=== PATIENT | female | born 1965 | race Caucasian/White ===

== ENCOUNTER → 2019-08-24 12:18 | Outpatient (BNVA) | payer MEDICARE, MEDICAID, SELFPAY | PROVIDERS: Family Provider Nurse Practitioner Family; Visit Provider Nurse Practitioner Family | DX: R19.7 Diarrhea, unspecified (principal); K63.5 Polyp of colon; H10.32 Unspecified acute conjunctivitis, left eye; H10.9 Unspecified conjunctivitis; K29.00 Acute gastritis without bleeding | CPT/HCPCS: 82270 ==

== ENCOUNTER → 2019-10-02 11:35 | Outpatient (BNVA) | payer MEDICARE, MEDICAID, SELFPAY | PROVIDERS: Family Provider Nurse Practitioner Family; PCP Nurse Practitioner Family; Visit Provider Nurse Practitioner Family | DX: E11.40 Type 2 diabetes mellitus with diabetic neuropathy, unspecified (principal); I10 Essential (primary) hypertension; E78.2 Mixed hyperlipidemia; E03.9 Hypothyroidism, unspecified; M15.0 Primary generalized (osteo)arthritis; H66.90 Otitis media, unspecified, unspecified ear; J40 Bronchitis, not specified as acute or chronic; B37.3 Candidiasis of vulva and vagina; J30.2 Other seasonal allergic rhinitis | CPT/HCPCS: 80053; 80061; 81001; 83036; 83880; 84443; 85025 ==

== ENCOUNTER → 2019-11-20 10:19 | Outpatient (BNVA) | payer MEDICARE, MEDICAID, SELFPAY | PROVIDERS: Family Provider Nurse Practitioner Family; PCP Nurse Practitioner Family; Referring Provider Nurse Practitioner Family; Visit Provider Orthopaedic Surgery | DX: M25.569 Pain in unspecified knee (principal); M17.0 Bilateral primary osteoarthritis of knee | CPT/HCPCS: 73560; 73565 ==

== ENCOUNTER → 2020-02-15 09:06 | Outpatient (BNVA) | payer OTHER, MEDICAID, SELFPAY | PROVIDERS: Family Provider Nurse Practitioner Family; PCP Nurse Practitioner Family; Visit Provider Nurse Practitioner Family | DX: E11.40 Type 2 diabetes mellitus with diabetic neuropathy, unspecified (principal); E78.2 Mixed hyperlipidemia; E03.9 Hypothyroidism, unspecified; I10 Essential (primary) hypertension; K21.9 Gastro-esophageal reflux disease without esophagitis; B37.3 Candidiasis of vulva and vagina; E55.9 Vitamin D deficiency, unspecified | CPT/HCPCS: 80053; 80061; 81001; 82306; 83036; 84443; 85025 ==

== ENCOUNTER → 2020-03-07 16:55 | Outpatient (BNVA) | payer OTHER, MEDICAID, SELFPAY | PROVIDERS: Family Provider Nurse Practitioner Family; PCP Nurse Practitioner Family; Visit Provider Nurse Practitioner Family | DX: R53.83 Other fatigue (principal); E11.40 Type 2 diabetes mellitus with diabetic neuropathy, unspecified; K57.92 Diverticulitis of intestine, part unspecified, without perforation or abscess without bleeding; B37.3 Candidiasis of vulva and vagina; L84 Corns and callosities; E66.01 Morbid (severe) obesity due to excess calories; Z68.43 Body mass index [BMI] 50.0-59.9, adult; M54.5 Low back pain | CPT/HCPCS: 82607; 82746 ==

== ENCOUNTER → 2020-03-08 11:41 | Outpatient (BNVA) | payer OTHER, MEDICAID, SELFPAY | PROVIDERS: Family Provider Nurse Practitioner Family; PCP Nurse Practitioner Family; Visit Provider Nurse Practitioner Family | DX: R53.83 Other fatigue (principal); E11.40 Type 2 diabetes mellitus with diabetic neuropathy, unspecified; K57.92 Diverticulitis of intestine, part unspecified, without perforation or abscess without bleeding; B37.3 Candidiasis of vulva and vagina; L84 Corns and callosities; E66.01 Morbid (severe) obesity due to excess calories; Z68.43 Body mass index [BMI] 50.0-59.9, adult; M54.5 Low back pain | CPT/HCPCS: 82746 ==

== ENCOUNTER 2020-03-20 13:38 | Emergency (ER) | payer OTHER, MEDICAID, SELFPAY ==
[2020-03-20 13:42] VITALS: BP 163/87; PULSE 79; RESP 17; TEMP 36.6; O2SAT 98; BMI 46.8
[2020-03-20 13:49] VITALS: BMI 46.8
[2020-03-20 14:25] LABS: Add Urine Microscopic? NO
[2020-03-20 14:31] LABS: Specific Gravity, Urine 1.005 (1.005-1.030); Urine Appearance Clear (CLEAR); Urine Color Yellow (Yellow); pH Urine 7 (5-7)
[2020-03-20 14:32] LABS: Bilirubin Urine Neg (NEGATIVE); Blood Urine Neg (Negative); Glucose Urine UA Norm (Normal); Ketones Urine Negative (Negative); Leukocyte Esterase Urine Negative (Negative); Nitrate Urine Negative (Negative); Protein Urine Neg (Negative); Urobilinogen Urine Norm (Negative)
--- NOTE | 2020-03-20 15:48 | CTR_ITS ---
PROCEDURE INFORMATION: Exam: CT Abdomen And Pelvis With Contrast Exam date and time: 03/20/2020 4:22 PM Age: 54 years old Clinical indication: Abdominal pain; Left; Prior surgery; Surgery date: 6+ months; Surgery type: Hyst, gb; Patient HX: C/O L flank pain x 4 days TECHNIQUE: Imaging protocol: Computed tomography of the abdomen and pelvis with intravenous contrast. Radiation optimization: All CT scans at this facility use at least one of these dose optimization techniques: automated exposure control; mA and/or kV adjustment per patient size (includes targeted exams where dose is matched to clinical indication); or iterative reconstruction. Contrast material: VISI 320; Contrast volume: 95 ml; Contrast route: INTRAVENOUS (IV); COMPARISON: CT abdomen pelvis w con* [id number] 05/27/2019 12:01 PM RADIATION DOSE METRICS: Total DLP (mGy-cm): 1928.9 FINDINGS: Lungs: Calcified granuloma in the left lung base. Liver: Diffuse fatty infiltration of the liver. Gallbladder and bile ducts: Cholecystectomy. The bile ducts are normal. Pancreas: Normal. No ductal dilation. Spleen: Calcified granulomas in a normal sized spleen. Adrenals: Normal. No mass. Kidneys and ureters: Normal. No hydronephrosis. Stomach and bowel: The transverse and distal sigmoid colon are decompressed, without definite wall thickening. The stomach and small bowel are unremarkable. Appendix: A small appendix is visualized and is normal. Intraperitoneal space: Unremarkable. No free air. No significant fluid collection. Vasculature: Unremarkable. No abdominal aortic aneurysm. Lymph nodes: Unremarkable. No enlarged lymph nodes. Bladder: Unremarkable as visualized. Reproductive: The uterus and ovaries are absent. Bones/joints: Unremarkable. No acute fracture. Soft tissues: Fat containing umbilical hernia. CT/CT abdomen pelvis w con* [id number] IMPRESSION: 1. No acute abnormality identified in the abdomen or pelvis. Radiation Dose CTDIVOL = (mGy): DLP = 1928.9 (mGy-cm)
[2020-03-20 15:51] LABS: Basophils % 0.5 %; Eosinophils # 0.1 10^3/uL (0.0-0.8); Eosinophils % 1.2 %; Hematocrit 45.6 % (37.0-47.0); Hemoglobin 14.5 g/dL (11.5-15.3); Lymphocytes # 1.9 10^3/uL (0.8-4.8); Lymphocytes % 22.3 %; Mean Corpuscular HGB Conc 31.8 g/dL (30.0-36.0); Mean Corpuscular Hemoglobin 28.8 pg (28.0-34.0); Mean Corpuscular Volume 90.5 fL (81-99); Mean Platelet Volume 10.2 fL (7.4-10.4); Monocytes # 0.5 10^3/uL (0.2-0.9); Neutrophils # 5.79 10^3/uL (1.8-7.7); Neutrophils % 69.9 %; Nucleated Red Blood Cells % 0 %; Platelet Count 262 10^3/cmm (130-400); Red Blood Count 5.04 10^6/uL (4.1-5.3); Red Cell Distribution Width 12.3 % (12.1-15.1); White Blood Count 8.3 10^3/uL (4.0-10.0)
--- NOTE | 2020-03-20 16:05 | W.ED.GENADLT ---
HPI - General Adult General: Chief complaint: General Medical Stated complaint: ab pain, left side Time Seen by Provider: 03/20/20 15:39 Source: patient Mode of arrival: ambulatory Limitations: no limitations History of Present Illness: HPI narrative: Ms. Mo is a nice 54-year-old female who comes in with multiple complaints. Her greatest complaint is that of left-sided abdominal pain. She states 3 days ago she was walking when she felt pain come on in her left back and left upper quadrant. She states she always felt like there was a pop . The pain is been steady since that time and never resolves. She feels like this is her diverticulitis that she is had in the past. She denies any diarrhea, blood in her stools, nausea or vomiting or fever. Patient states that she just cannot get the pain to go away and that is her concern. She does not relate trying anything at home for this. Her other complaint is that of yeast infection under her breast. She states is been present for 1 week. She says it itches and uncomfortable. She had leftover nystatin that she is been trying at home for this as well but does not feel as though it is improving. Associated symptoms: Reports rash; Deny chest pain, dyspnea, headache(s), nausea, palpitations, syncope or vomiting Review of Systems Const: Denies: fever(s) Eyes: Denies: change in vision or blurry vision ENMT: Denies: throat pain or hoarseness Card: Denies: chest pain, palpitations, syncope, pre-syncope or dyspnea on exertion Resp: Denies: dyspnea, productive cough or non-productive cough GI: Reports: abdominal pain; Denies: nausea, vomiting or diarrhea : Reports: flank pain; Denies: dysuria, urinary frequency or urinary urgency Musc: Denies: neck pain, back pain or extremity pain Skin/Breast: Reports: rash; Denies: pruritus Neuro: Denies: headache(s), numbness in extremities, weakness in extremities or dizziness FOR[facility] ED PFSH: Medical History BMI 45.0-49.9, adult Callus of foot Diverticulitis Essential hypertension, benign Fatigue Fibromyalgia GERD (gastroesophageal reflux disease) H/O adenomatous polyp of colon Hypothyroid Mixed hyperlipidemia Obesity Oral herpes Osteoarthritis of knees, bilateral Primary osteoarthritis involving multiple joints Type 2 diabetes mellitus with diabetic neuropathy Vaginal yeast infection Surgical History H/O section H/O colonoscopy with polypectomy Last colonoscopy done 03/[address] Knight. Suggested repeat 2-3 years H/O: hysterectomy S/P cholecystectomy Family History Denies family history of Anesthesia complication Bleeding disorder Social History Smoking and tobacco status: never smoked Second hand smoke exposure: No Alcohol intake: never Desire information about alcohol rehabilitation?: No Counseling given: No Desire information about substance/drug rehabilitation?: No Counseling given: No Physical Exam Const: COMMON NORMALS: no acute distress, patient oriented x3, no limitations, healthy appearing and well nourished GENERAL APPEARANCE: cooperative, well kempt and well developed HENMT: COMMON NORMALS: normocephalic, atraumatic, external ears normal, EAC's normal and Normal external nose present HEAD & SCALP: normal to inspection, normocephalic and atraumatic FACE & SINUS: normal facial exam and face symmetric NOSE: Normal external nose present and Normal nares present EXTERNAL EAR: Yes external ears normal EXTERNAL AUDITORY CANAL: EAC's normal MOUTH: Normal oral and palatal mucosa present, lip normal and tongue normal Eye: COMMON NORMALS: Equal, round and reactive pupils present and conjunctivae normal GENERAL EYE: appearance normal, both eyes and all related structures ALIGNMENT: Yes alignment normal PERIORBITAL: periorbital findings normal EYELID: eyelids normal CONJUNCTIVA: Yes conjunctivae normal SCLERA: sclerae normal PUPIL: Yes Equal, round and reactive pupils present Neck/C-Spine: COMMON NORMALS: full ROM, no lymphadenopathy, supple, no meningeal signs and no JVD GENERAL: Yes normal visual inspection and Yes trachea midline Chest: COMMONS NORMALS: normal inspection of the chest and normal palpation of entire chest wall Resp: COMMON NORMALS: normal respiratory effort, No retractions, No use of accessory muscles and clear to auscultation bilaterally EFFORT & INSPECTION: Yes able to speak in complete sentences and Yes symmetric chest movement AUSCULTATION: clear to auscultation bilaterally, no crackles, no rales, no rhonchi and no wheezes Cardio: COMMON NORMALS: no JVD, regular rate, regular rhythm, S1 normal heart sound present and S2 normal heart sound present RATE: regular rate RHYTHM: regular rhythm HEART SOUNDS: S1 normal heart sound present, S2 normal heart sound present, no click, no gallops, no murmurs, no rubs and abnormal split S2 GI: COMMON NORMALS: Soft to palpation and No hepatosplenomegaly present PALPATION: Yes Soft to palpation, Yes Tenderness to palpation present (GI) Details: LUQ, No Guarding due to palpation present (GI), No Rigid due to palpation, Yes No hepatosplenomegaly present, No Hernia present, No Palpable mass present and No Pulsatile mass present : COMMON NORMALS: Yes no CVA tenderness BLADDER/KIDNEY EXAM: Yes no CVA tenderness EXTERNAL FEMALE EXAM: No Hernia present Back/Pelvis: COMMON NORMALS: no CVA tenderness, thoracic and lumbar spine normal to inspection, no thoracic nor lumbar tenderness and thoraco-lumbar ROM normal Extremity: COMMON NORMALS: normal to inspection, full ROM, capillary refill normal, no joint enlargement, no clubbing, cyanosis or edema and no calf tenderness Neuro: COMMON NORMALS: patient oriented x3, CN's II-XII intact bilaterally, moves all extremities, no focal motor deficits and no sensory deficits noted MENINGEAL SIGNS: Yes no meningeal signs SPEECH: speech normal Psych: COMMON NORMALS: mental status grossly normal, Normal thought process present, cooperative, normal affect, speech normal and activity/motor behavior normal APPEARANCE: Yes well kempt SPEECH: Yes normal speech THOUGHT PROCESS: Normal thought process present Skin: COMMON NORMALS: no rashes or lesions noted, turgor normal, no jaundice, no petechiae and no mottling GENERAL SKIN EXAM: no rashes or lesions noted and turgor normal Course Vital Signs: Vital signs: Vital Signs Temperature 97.8 F 03/20/20 13:42 Pulse Rate 78 03/20/20 18:26 Respiratory Rate 17 03/20/20 18:26 Blood Pressure 145/74 03/20/20 18:26 Pulse Oximetry 97 03/20/20 18:26 MDM - General Adult MDM Narrative: Medical decision making narrative: Patient is reassured to hear her CT is unremarkable. She is ready to go home at this time but does request something for yeast infection. It is slightly more so I put her on nystatin powder. Instructed her to keep this area clean and dry. Her exam was unremarkable see no sign of cardiac findings. There is no sign of urinary tract infection or pyelonephritis. This time according to her CAT scan I see no acute life-threatening problems. Patient agrees to return should her symptoms change or worsen. Lab Data: Attestation: I reviewed the patient's lab results. Labs: Lab Results 03/20/20 03/20/20 03/20/20 Range/Units 14:05 15:42 15:42 WBC 8.3 (4.0-10.0) 10^3/ uL RBC 5.04 (4.1-5.3) 10^6/u L Hgb 14.5 (11.5-15.3) g/dL Hct 45.6 (37.0-47.0) % MCV 90.5 (81-99) fL MCH 28.8 (28.0-34.0) pg MCHC 31.8 (30.0-36.0) g/dL RDW 12.3 (12.1-15.1) % Plt Count 262 (130-400) 10^3/c mm MPV 10.2 (7.4-10.4) fL Neut % (Auto) 69.9 % Lymph % (Auto) 22.3 % [place] % (Auto) 6.0 % Eos % (Auto) 1.2 % Baso % (Auto) 0.5 % Neut # (Auto) 5.79 (1.8-7.7) 10^3/u L Lymph # (Auto) 1.9 (0.8-4.8) 10^3/u L [place] # (Auto) 0.5 (0.2-0.9) 10^3/u L Eos # (Auto) 0.1 (0.0-0.8) 10^3/u L Baso # (Auto) 0.0 (0.0-0.1) 10^3/u L Nucleated RBC % (a uto) 0 % Nucleated RBCs # 0.0 /100WBC Sodium 138 (136-145) mmol/L Potassium 4.3 (3.5-5.1) mmol/L Chloride 103 (98-107) mmol/L Carbon Dioxide 29 (22-29) mmol/L Anion Gap 10.3 (5-19) BUN 12 (6-20) mg/dL Creatinine 1.1 H (0.5-0.9) mg/dL GFR Calculation 51.4 L (90-130) mL/min Glucose 117 H (65-115) mg/dL Calculated Osmolal ity 283 L (285-295) mOsm/k g Calcium 9.5 (8.5-10.5) mg/dL Total Bilirubin 0.4 (0.15-1.2) mg/dL AST 25 (0-32) U/L ALT 40 H (0-33) U/L Alkaline Phosphata se 111 H (35-105) IU/L Total Protein 7.3 (6.6-8.7) g/dL Albumin 4.0 (3.5-5.2) g/dL Globulin 3.3 (1.3-4.6) g/dL Lipase 52 (13-60) U/L HCG, Qual (Negative) Urine Color Yellow (Yellow) Urine Appearance Clear (CLEAR) Urine pH 7 (5-7) Ur Specific Gravit y 1.005 (1.005-1.030) Urine Protein Neg (Negative) Urine Glucose (UA) Norm (Normal) Urine Ketones Negative (Negative) Urine Blood Neg (Negative) Urine Nitrate Negative (Negative) Urine Bilirubin Neg (NEGATIVE) Urine Urobilinogen Norm (Negative) mg/dL Ur Leukocyte Shae ase Negative (Negative) 03/20/20 Range/Units 15:42 WBC (4.0-10.0) 10^3/ uL RBC (4.1-5.3) 10^6/u L Hgb (11.5-15.3) g/dL Hct (37.0-47.0) % MCV (81-99) fL MCH (28.0-34.0) pg MCHC (30.0-36.0) g/dL RDW (12.1-15.1) % Plt Count (130-400) 10^3/c mm MPV (7.4-10.4) fL Neut % (Auto) % Lymph % (Auto) % [place] % (Auto) % Eos % (Auto) % Baso % (Auto) % Neut # (Auto) (1.8-7.7) 10^3/u L Lymph # (Auto) (0.8-4.8) 10^3/u L [place] # (Auto) (0.2-0.9) 10^3/u L Eos # (Auto) (0.0-0.8) 10^3/u L Baso # (Auto) (0.0-0.1) 10^3/u L Nucleated RBC % (a uto) % Nucleated RBCs # /100WBC Sodium (136-145) mmol/L Potassium (3.5-5.1) mmol/L Chloride (98-107) mmol/L Carbon Dioxide (22-29) mmol/L Anion Gap (5-19) BUN (6-20) mg/dL Creatinine (0.5-0.9) mg/dL GFR Calculation (90-130) mL/min Glucose (65-115) mg/dL Calculated Osmolal ity (285-295) mOsm/k g Calcium (8.5-10.5) mg/dL Total Bilirubin (0.15-1.2) mg/dL AST (0-32) U/L ALT (0-33) U/L Alkaline Phosphata se (35-105) IU/L Total Protein (6.6-8.7) g/dL Albumin (3.5-5.2) g/dL Globulin (1.3-4.6) g/dL Lipase (13-60) U/L HCG, Qual Negative (Negative) Urine Color (Yellow) Urine Appearance (CLEAR) Urine pH (5-7) Ur Specific Gravit y (1.005-1.030) Urine Protein (Negative) Urine Glucose (UA) (Normal) Urine Ketones (Negative) Urine Blood (Negative) Urine Nitrate (Negative) Urine Bilirubin (NEGATIVE) Urine Urobilinogen (Negative) mg/dL Ur Leukocyte Shae ase (Negative) Imaging Data^: CT Abd/Pel: Radiologist's impression: [address] [place] [address] CT Scan Report Signed Patient: Yu Mo Unit #: [id number] : 1965 Age/Sex: 54 / F ADM Date: 03/20/20 Loc: ER Room/Bed: Attending Dr: Ordering Provider/Ordering MD: Renita Morrow DO Date of Service: 03/20/20 Procedure(s): CT abdomen pelvis w con* [id number] Accession Number(s): [id number] Report Number: [id number] PROCEDURE INFORMATION: Exam: CT Abdomen And Pelvis With Contrast Exam date and time: 03/20/2020 4:22 PM Age: 54 years old Clinical indication: Abdominal pain; Left; Prior surgery; Surgery date: 6+ months; Surgery type: Hyst, gb; Patient HX: C/O L flank pain x 4 days TECHNIQUE: Imaging protocol: Computed tomography of the abdomen and pelvis with intravenous contrast. Radiation optimization: All CT scans at this facility use at least one of these dose optimization techniques: automated exposure control; mA and/or kV adjustment per patient size (includes targeted exams where dose is matched to clinical indication); or iterative reconstruction. Contrast material: VISI 320; Contrast volume: 95 ml; Contrast route: INTRAVENOUS (IV); COMPARISON: CT abdomen pelvis w con* [id number] 05/27/2019 12:01 PM RADIATION DOSE METRICS: Total DLP (mGy-cm): 1928.9 FINDINGS: Lungs: Calcified granuloma in the left lung base. Liver: Diffuse fatty infiltration of the liver. Gallbladder and bile ducts: Cholecystectomy. The bile ducts are normal. Pancreas: Normal. No ductal dilation. Spleen: Calcified granulomas in a normal sized spleen. Adrenals: Normal. No mass. Kidneys and ureters: Normal. No hydronephrosis. Stomach and bowel: The transverse and distal sigmoid colon are decompressed, without definite wall thickening. The stomach and small bowel are unremarkable. Appendix: A small appendix is visualized and is normal. Intraperitoneal space: Unremarkable. No free air. No significant fluid collection. Vasculature: Unremarkable. No abdominal aortic aneurysm. Lymph nodes: Unremarkable. No enlarged lymph nodes. Bladder: Unremarkable as visualized. Reproductive: The uterus and ovaries are absent. Bones/joints: Unremarkable. No acute fracture. Soft tissues: Fat containing umbilical hernia. CT/CT abdomen pelvis w con* [id number] IMPRESSION: 1. No acute abnormality identified in the abdomen or pelvis. Radiation Dose CTDIVOL = (mGy): DLP = 1928.9 (mGy-cm) Dictated By: Anthony Deleon Signed By: Anthony Deleon Signed Date/Time: 03/20/201712 DD/ 10 Discharge Plan Discharge Patient Disposition: Home Clinical Impression: Candidal skin infection Abdominal pain Qualifiers: Abdominal location: left upper quadrant Qualified Code(s): R10.12 - Left upper quadrant pain Condition: Stable Prescriptions: New nystatin 100,000 unit/gram powder 1 applic TOPICAL QID Qty: 30 RF: 0 No Action levalbuterol HCl [Xopenex] 0.63 mg/3 mL solution for nebulization 3 ml INHALATION TID RF: 0 ergocalciferol (vitamin D2) [Vitamin D2] 50,000 unit capsule 50,000 ea PO DIRECTED RF: 0 potassium chloride [Klor-Con 10] 10 mEq tablet extended release 10 meq PO DAILY RF: 0 Zyrtec 10 mg capsule 10 mg PO DAILY RF: 0 pantoprazole [Protonix] 40 mg tablet,delayed release (DR/EC) 40 mg PO QAM 28 Days Qty: 90 RF: 2 ibuprofen 800 mg tablet 800 mg PO Q8H PRN (Reason: pain) 30 Days Qty: 90 RF: 1 omega-3 acid ethyl esters [Lovaza] 1 gram capsule 1 cap PO DAILY 30 Days Qty: 30 RF: 2 ondansetron HCl [Zofran] 4 mg tablet 4 mg PO Q8H PRN (Reason: nausea and vomiting) 5 Days Qty: 14 RF: 0 Rybelsus 3 mg tablet 3 mg PO DAILY 30 Days Qty: 30 RF: 0 Januvia 100 mg tablet 100 mg PO DAILY 30 Days Qty: 30 RF: 1 ciprofloxacin HCl 750 mg tablet 750 mg PO Q12H 7 Days Qty: 14 RF: 0 fluconazole [Diflucan] 150 mg tablet 150 mg PO Q3D Qty: 2 RF: 0 metronidazole [Flagyl] 500 mg tablet 500 mg PO TID 7 Days Qty: 21 RF: 0 acyclovir 800 mg tablet 800 mg PO BID Qty: 60 RF: 0 levothyroxine 25 mcg tablet 25 mcg PO DAILY Qty: 30 RF: 1 furosemide [Lasix] 20 mg tablet 20 mg PO DAILY Qty: 30 RF: 2 nystatin 100,000 unit/gram cream 1 applic TOPICAL BID Qty: 30 RF: 1 losartan [Cozaar] 25 mg tablet 25 mg PO DAILY Qty: 30 RF: 2 Eye Health Plus Lutein 1,000 unit-200 mg-60 unit-2 mg Tablet 1 tab PO DAILY RF: 0 Discharge Orders: Discharge Order (Routine); Ordered 03/20/20 Ordered By: Renita Morrow Referrals: JACKSON Hubbard, REINFORCEMENT MAKER [Primary Care Provider] - 1-3 days Discharge Diet: Advance as tolerated Discharge Activity: Increase activity as tolerated Patient Instructions: Abdominal Pain (ED) Activity Restrictions/Additional Instructions: Please return to the ER immediately for any of the signs or symptoms listed on your discharge instruction sheets, worsening/changing of your symptoms, you are not getting better as quickly as expected, or for ANY other cause or concerns. Keep the skin involved with the rash clean and dry. Return to the ER for fever, vomiting, increased pain, worsening of your rash, or for any other cause for concern. Discharge Date/Time: 03/20/20 18:30 Coding Level of Care Code ED Psychologist Engineering for Chg Fwd Exam Comprehensive
[2020-03-20 16:08] LABS: HCG, Serum Qual Negative (Negative)
[2020-03-20 16:14] LABS: Alanine Aminotransferase 40 U/L (0-33); Alkaline Phosphatase 111 IU/L (35-105); Anion Gap 10.3 (5-19); Aspartate Amino Transferase 25 U/L (0-32); Blood Urea Nitrogen 12 mg/dL (6-20); Calcium 9.5 mg/dL (8.5-10.5); Carbon Dioxide 29 mmol/L (22-29); Chloride 103 mmol/L (98-107); Globulin 3.3 g/dL (1.3-4.6); Glomerular Filtration Rate 51.4 mL/min (90-130); Glucose 117 mg/dL (65-115); Lipase 52 U/L (13-60); Osmolality Calculated 283 mOsm/kg (285-295); Potassium 4.3 mmol/L (3.5-5.1); Sodium 138 mmol/L (136-145); Total Bilirubin 0.4 mg/dL (0.15-1.2); Total Protein 7.3 g/dL (6.6-8.7)
[2020-03-20] MEDS: iodixanol 320 mg/mL 100mL Btl IV (16:36)
[2020-03-20] MEDS: sodium chloride 0.9% 1,000 ML 999 ML IV (16:37)
[2020-03-20 18:26] VITALS: BP 145/74; PULSE 78; RESP 17; O2SAT 97
== END 2020-03-20 18:30 | disposition home or self-care (01) ==
PROVIDERS: Emergency Provider Emergency Medicine; Family Provider Nurse Practitioner Family; PCP Nurse Practitioner Family
DX: B37.2 Candidiasis of skin and nail (principal); R10.12 Left upper quadrant pain; I10 Essential (primary) hypertension; E78.2 Mixed hyperlipidemia; E11.9 Type 2 diabetes mellitus without complications
CPT/HCPCS: 12345; 36415; 74177; 80053; 81003; 83690; 84703; 85025; 96360; 99282; 99283; J7030; Q9967

== ENCOUNTER 2020-03-30 14:30 | Outpatient (CLI) | payer MEDICARE, MEDICAID, SELFPAY ==
--- NOTE | 2020-03-30 14:43 | MM_ITS ---
WS: [id number] BILATERAL DIGITAL SCREENING MAMMOGRAM WITH CAD CLINICAL INFORMATION: SCREENING HISTORY: Screening mammogram. No current complaints. COMPARISON: TECHNIQUE: Bilateral CC and MLO views. FINDINGS: Fatty-replaced breasts bilaterally. No suspicious focal mass, asymmetry, calcifications, or test architect ural distortion. No evidence of malignancy. MM/[place] [id number] IMPRESSION: BI-RADS: 1-Negative FOLLOW UP: 1 Year Follow-up Recommend return to annual screening mammography.
== END 2020-03-30 14:31 | disposition home or self-care (01) ==
LOC: RADSHAW 14:42
PROVIDERS: PCP Nurse Practitioner Family; Visit Provider Nurse Practitioner Family
DX: Z12.31 Encounter for screening mammogram for malignant neoplasm of breast (principal)
CPT/HCPCS: 73630; 77067

== ENCOUNTER 2020-04-12 06:00 | Outpatient (RCR) | payer MEDICARE, MEDICAID, SELFPAY | END 2020-04-20 23:59 | disposition home or self-care (01) | LOC: WPT 06:00 | PROVIDERS: PCP Nurse Practitioner Family; Referring Provider Nurse Practitioner Family; Visit Provider Nurse Practitioner Family | DX: M54.5 Low back pain (principal); G89.29 Other chronic pain | CPT/HCPCS: 97110; 97163 ==

== ENCOUNTER → 2020-05-03 11:14 | Outpatient (BNVA) | payer MEDICARE, MEDICAID, SELFPAY | PROVIDERS: PCP Nurse Practitioner Family; Visit Provider Family Medicine | DX: E11.40 Type 2 diabetes mellitus with diabetic neuropathy, unspecified (principal) | CPT/HCPCS: 83036 ==

== ENCOUNTER 2020-05-23 06:00 | Outpatient (RCR) | payer MEDICARE, MEDICAID, SELFPAY | END 2020-06-20 23:59 | disposition home or self-care (01) | LOC: WPT 06:00 | PROVIDERS: PCP Nurse Practitioner Family; Referring Provider Nurse Practitioner Family; Visit Provider Nurse Practitioner Family | DX: M54.5 Low back pain (principal); G89.29 Other chronic pain | CPT/HCPCS: 97110; 97163 ==

== ENCOUNTER → 2020-08-08 13:48 | Outpatient (BNVA) | payer MEDICARE, MEDICAID, SELFPAY | PROVIDERS: PCP Nurse Practitioner Family; Visit Provider Family Medicine | DX: E11.40 Type 2 diabetes mellitus with diabetic neuropathy, unspecified (principal); E78.2 Mixed hyperlipidemia; E03.9 Hypothyroidism, unspecified; I10 Essential (primary) hypertension; R05 Cough; J32.9 Chronic sinusitis, unspecified | CPT/HCPCS: 80053; 80061; 83036; 84443; 85025 ==

== ENCOUNTER 2020-08-09 13:29 | Outpatient (CLI) | payer MEDICARE, MEDICAID, SELFPAY ==
--- NOTE | 2020-08-09 14:30 | CT_ITS ---
WS: [id number] CT CHEST TECHNIQUE: Noncontrast CT of the chest with coronal and sagittal reformatted images. CLINICAL INFORMATION: J98.4 - Other disorders of lung COMPARISON: CT 10 018 DLP: 1041.[address] scans at [facility] use at least one of these dose optimization techniques: automat ed exposure control; mA and/or kV adjustment per patient size (includes targeted exams where dose is matched to clinical indication); or iterative reconstruction. FINDINGS: Moderate chronic emphysematous changes. Calcified granulomas. Hazy groundglass infiltrates in the per ihilar regions and both upper lobes. Recommend correlation for pneumonitis. No focal consolidation. N o significant pleural fluid. Calcified AP window and mediastinal lymph nodes. No axillary lymphadenopathy. Normal GE junction. Cholecystectomy clips. Adrenal glands are normal. Normal visualized thoracic spin e. CT/CT chest wo con [id number] IMPRESSION: 1. Hazy groundglass infiltrates in the perihilar regions and upper lobes. Star mmend correlation for viral pneumonitis including COVID 19 2. No focal consolidation or pleural fluid. 3. No mediastinal or hilar lymphadenopathy. 4. Prior cholecystectomy.
== END 2020-08-09 13:30 | disposition home or self-care (01) ==
LOC: RADWPI 13:34
PROVIDERS: PCP Nurse Practitioner Family; Visit Provider Nurse Practitioner Family
DX: J98.4 Other disorders of lung (principal); R91.8 Other nonspecific abnormal finding of lung field; Z90.49 Acquired absence of other specified parts of digestive tract
CPT/HCPCS: 71250

== ENCOUNTER → 2020-11-03 11:36 | Outpatient (BNVA) | payer MEDICARE, MEDICAID, SELFPAY | PROVIDERS: PCP Nurse Practitioner Family; Visit Provider Nurse Practitioner Family | DX: M54.9 Dorsalgia, unspecified (principal); G89.29 Other chronic pain; E78.2 Mixed hyperlipidemia; I10 Essential (primary) hypertension; E03.9 Hypothyroidism, unspecified; E53.8 Deficiency of other specified B group vitamins; E55.9 Vitamin D deficiency, unspecified; E11.40 Type 2 diabetes mellitus with diabetic neuropathy, unspecified | CPT/HCPCS: 80053; 80061; 81003; 82306; 82607; 83036; 83921; 84443; 85025 ==

== ENCOUNTER → 2020-11-08 11:46 | Outpatient (BNVA) | payer MEDICARE, MEDICAID, SELFPAY | PROVIDERS: PCP Nurse Practitioner Family; Visit Provider Nurse Practitioner Family | DX: R94.4 Abnormal results of kidney function studies (principal); E11.40 Type 2 diabetes mellitus with diabetic neuropathy, unspecified | CPT/HCPCS: 82043 ==

== ENCOUNTER → 2021-03-06 12:59 | Outpatient (BNVA) | payer MEDICARE, MEDICAID, SELFPAY | PROVIDERS: PCP Nurse Practitioner Family; Visit Provider Family Medicine | DX: N39.0 Urinary tract infection, site not specified (principal) | CPT/HCPCS: 81000 ==

== ENCOUNTER 2021-04-03 11:42 | Outpatient (CLI) | payer MEDICARE, MEDICAID, SELFPAY ==
--- NOTE | 2021-04-03 13:00 | MM_ITS ---
WS: [id number] BILATERAL SCREENING DIGITAL MAMMOGRAM WITH CAD HISTORY: Z12.31 - Encounter for screening mammogram for malignant ... COMPARISON: 03/30/2020 and 02/16/2019 Bilateral CC and MLO views submitted. Computer aided detection analyzed. Breast composition: The breasts are almost entirely fatty. No suspicious masses, microcalcifications or architectural distortion. MM/[place] [id number] IMPRESSION: BI-RADS: 1-Negative FOLLOW UP: 1 Year Follow-up
== END 2021-04-03 11:43 | disposition home or self-care (01) ==
LOC: RADSHAW 11:49
PROVIDERS: PCP Nurse Practitioner Family; Visit Provider Nurse Practitioner Family
DX: Z12.31 Encounter for screening mammogram for malignant neoplasm of breast (principal)
CPT/HCPCS: 77067

== ENCOUNTER → 2021-05-01 11:22 | Outpatient (BNVA) | payer MEDICARE, MEDICAID, SELFPAY | PROVIDERS: PCP Nurse Practitioner Family; Visit Provider Nurse Practitioner Family | DX: J22 Unspecified acute lower respiratory infection (principal) | CPT/HCPCS: 71046 ==

== ENCOUNTER 2021-05-09 13:45 | Outpatient (CLI) | payer MEDICARE, MEDICAID, SELFPAY ==
--- NOTE | 2021-05-09 13:50 | USCV_ITS ---
Yu Mo Age: 55 Gender: F : 1965 Exam Date: 05/09/2021 13:36 Ordering Phys: JACKSON Hubbard APRN UNDERCUTTER OPERATOR Technologist: Exam Location: [facility] [place]_ Indication: pvd RIGHT LEFT Brachial 163.00 mmHg Brachial 152.00 mmHg Pressure (mmHg) Waveform Pressure (mmHg) Waveform 210.00 MAGNETIC TAPE TYPEWRITER OPERATOR 207.00 203.00 DPA 193.00 1.29 Ankle/Brachial Index 178.00 169.00 Pre-Exercise Toe Pressure 1.18 1.04 Pre-Exercise Toe/Brachial Index 1.09 FINDINGS Normal resting ABIs bilaterally Normal resting TBI's bilaterally CONCLUSIONS No evidence of any significant arterial obstruction, based on the above findings. Dr Weston Higgins MD FAC (Electronically Signed) Final Date: 09 May 2021 21:42 S
== END 2021-05-09 13:46 | disposition home or self-care (01) ==
PROVIDERS: PCP Nurse Practitioner Family; Visit Provider Nurse Practitioner Family
DX: I73.9 Peripheral vascular disease, unspecified (principal)
CPT/HCPCS: 93922

== ENCOUNTER → 2021-07-25 11:49 | Outpatient (BNVA) | payer MEDICARE, MEDICAID, SELFPAY | PROVIDERS: PCP Nurse Practitioner Family; Visit Provider Nurse Practitioner Family | DX: E53.8 Deficiency of other specified B group vitamins (principal); E11.40 Type 2 diabetes mellitus with diabetic neuropathy, unspecified; E03.9 Hypothyroidism, unspecified; E78.2 Mixed hyperlipidemia; E55.9 Vitamin D deficiency, unspecified; R00.2 Palpitations; R06.02 Shortness of breath; I10 Essential (primary) hypertension | CPT/HCPCS: 80053; 80061; 81003; 82306; 82607; 83036; 84439; 84443; 85025 ==

== ENCOUNTER → 2021-09-06 10:05 | Outpatient (BNVA) | payer MEDICARE, MEDICAID, SELFPAY | PROVIDERS: PCP Nurse Practitioner Family; Visit Provider Nurse Practitioner Family | DX: I10 Essential (primary) hypertension (principal); E03.9 Hypothyroidism, unspecified | CPT/HCPCS: 80053; 83880; 85025 ==

== ENCOUNTER → 2021-10-27 09:44 | Outpatient (BNVA) | payer MEDICARE, MEDICAID, SELFPAY | PROVIDERS: PCP Nurse Practitioner Family; Visit Provider Nurse Practitioner | DX: R53.83 Other fatigue (principal); E11.40 Type 2 diabetes mellitus with diabetic neuropathy, unspecified | CPT/HCPCS: 83036; 84443 ==

== ENCOUNTER → 2021-12-12 10:56 | Outpatient (BNVA) | payer MEDICARE, MEDICAID, SELFPAY | PROVIDERS: PCP Nurse Practitioner Family; Visit Provider Registered Nurse | DX: E55.9 Vitamin D deficiency, unspecified (principal); E11.9 Type 2 diabetes mellitus without complications; E03.9 Hypothyroidism, unspecified; E53.8 Deficiency of other specified B group vitamins; E78.5 Hyperlipidemia, unspecified; I10 Essential (primary) hypertension; K21.9 Gastro-esophageal reflux disease without esophagitis; E78.2 Mixed hyperlipidemia; R23.2 Flushing | CPT/HCPCS: 80053; 80061; 82306; 82607; 83036; 84443; 85025 ==

== ENCOUNTER → 2022-01-23 12:48 | Outpatient (BNVA) | payer MEDICARE, MEDICAID, SELFPAY | PROVIDERS: PCP Nurse Practitioner Family; Visit Provider Internal Medicine Cardiovascular Disease | DX: R06.02 Shortness of breath (principal); R00.2 Palpitations; E66.01 Morbid (severe) obesity due to excess calories; Z68.43 Body mass index [BMI] 50.0-59.9, adult; M79.7 Fibromyalgia; I10 Essential (primary) hypertension; E11.40 Type 2 diabetes mellitus with diabetic neuropathy, unspecified; E78.2 Mixed hyperlipidemia; M79.89 Other specified soft tissue disorders; E55.9 Vitamin D deficiency, unspecified; J30.89 Other allergic rhinitis; E53.8 Deficiency of other specified B group vitamins | CPT/HCPCS: 80053; 82306; 82607; 83036; 85025; 86003; 86008; 99213; 99214 ==

== ENCOUNTER → 2022-04-19 10:23 | Outpatient (BNVA) | payer MEDICARE, MEDICAID, SELFPAY | PROVIDERS: PCP Registered Nurse; Visit Provider Nurse Practitioner Family | DX: T14.8XXA Other injury of unspecified body region, initial encounter (principal); M79.10 Myalgia, unspecified site; M79.89 Other specified soft tissue disorders; R60.9 Edema, unspecified; X58.XXXA Exposure to other specified factors, initial encounter | CPT/HCPCS: 80053; 85025 ==

== ENCOUNTER → 2022-04-24 10:21 | Outpatient (BNVA) | payer MEDICARE, MEDICAID, SELFPAY | PROVIDERS: PCP Registered Nurse; Visit Provider Internal Medicine Cardiovascular Disease | DX: M79.89 Other specified soft tissue disorders (principal); I10 Essential (primary) hypertension | CPT/HCPCS: 99214 ==

== ENCOUNTER 2022-05-15 08:50 | Outpatient (CLI) | payer MEDICARE, MEDICAID, SELFPAY ==
--- NOTE | 2022-05-15 09:30 | USCV_ITS ---
Chepe Yu Age: 56 Gender: F : 1965 Exam Date: 05/15/2022 09:11 Ordering Phys: Sherin Bender MD ([email or web address]) Technologist: SHOBHA [place] [facility] [place]: HISTORY: Lower extremity swelling. PROCEDURES: Venous duplex imaging was performed in bilateral lower extremities. The venous duplex Doppler examination of both lower extremities was performed in the standard fashion. The following venous structures were evaluated: common femoral vein, profunda vein, proximal portion of the greater saphenous vein, superficial femoral vein, and the popliteal vein. In addition, the posterior tibial veins were evaluated. Serial compression, augmentation maneuvers, and spectral Doppler flow evaluation were performed. Bilateral duplex Venous Insufficiency study of the Deep and Superficial systems was carried out according to normal protocol with the patient in supine positon for deep system and dependent position for the superficial system. FINDINGS: The veins were found to be easily compressible with spontaneous blood flow. Non pulsatile flow pattern. Reflux time of more than 4000 ms were noted distal to the saphenofemoral junction, distal greater saphenous vein and below-knee greater saphenous vein segments on the right side CONCLUSIONS 1. No evidence of DVT in the above-mentioned identifiable veins. 2. Significant venous reflux of greater than 500 ms(in the 4000 ms range) were noted at distal to the saphenofemoral junction, distal and below-knee greater saphenous vein segments. The venous segments were measuring 0.36 to 0.5 cm in diameter. The segments are greater than 1 cm deep from the surface. No significant reflux in the deep veins on the right side 3. Significant venous reflux of greater than 500 ms(767 ms) was noted at the left saphenofemoral junction. Otherwise no significant reflux were noted in the deep or other superficial veins on the left side. Dr Weston Higgins MD [facility] (Electronically Signed) Final Date: 16 May 2022 09:39 S
--- NOTE | 2022-05-15 13:45 | US_ITS ---
WS: [id number] ULTRASOUND SOFT TISSUES RIGHT thigh. HISTORY: M79.89 - Other specified soft tissue disorders COMPARISON: None available. TECHNIQUE: 2-D and color Doppler imaging is submitted. Ultrasound is directed over the RIGHT lower extremity along the RIGHT thigh. No mass identified. Norm al appearance to the soft tissues. There is a patent muscular penetrating artery. No thrombus. US/US soft tissue/extremity [id number] IMPRESSION: Negative ultrasound RIGHT thigh.
== END 2022-05-15 08:51 | disposition home or self-care (01) ==
LOC: RAD 08:50
PROVIDERS: PCP Registered Nurse; Visit Provider Internal Medicine Cardiovascular Disease
DX: M79.89 Other specified soft tissue disorders (principal); I73.9 Peripheral vascular disease, unspecified; I87.2 Venous insufficiency (chronic) (peripheral)
CPT/HCPCS: 76882; 93970

== ENCOUNTER → 2022-06-28 14:01 | Outpatient (BNVA) | payer MEDICARE, MEDICAID, SELFPAY | PROVIDERS: PCP Registered Nurse; Visit Provider Thoracic Surgery (Cardiothoracic Vascular Surgery) | DX: I83.891 Varicose veins of right lower extremity with other complications (principal); M79.89 Other specified soft tissue disorders; I87.2 Venous insufficiency (chronic) (peripheral) | CPT/HCPCS: 99203 ==

== ENCOUNTER → 2022-08-10 13:41 | Outpatient (BNVA) | payer MEDICARE, MEDICAID, SELFPAY | PROVIDERS: PCP Registered Nurse; Visit Provider Registered Nurse | DX: R50.9 Fever, unspecified (principal); E11.9 Type 2 diabetes mellitus without complications; Z51.81 Encounter for therapeutic drug level monitoring; Z79.1 Long term (current) use of non-steroidal anti-inflammatories (NSAID); I10 Essential (primary) hypertension | CPT/HCPCS: 87400 ==

== ENCOUNTER → 2022-11-07 10:40 | Outpatient (BNVA) | payer MEDICARE, MEDICAID, SELFPAY | PROVIDERS: PCP Nurse Practitioner Family; Referring Provider Dermatology; Visit Provider Specialist | DX: M17.0 Bilateral primary osteoarthritis of knee (principal); E66.01 Morbid (severe) obesity due to excess calories; Z68.42 Body mass index [BMI] 45.0-49.9, adult | CPT/HCPCS: 20610; 73560; 73565; 99204; J7325 ==

== ENCOUNTER → 2022-11-28 10:51 | Outpatient (BNVA) | payer MEDICARE, MEDICAID, SELFPAY | PROVIDERS: PCP Nurse Practitioner Family; Visit Provider Nurse Practitioner Family | DX: I10 Essential (primary) hypertension (principal); R73.09 Other abnormal glucose | CPT/HCPCS: 80053; 80061 ==

== ENCOUNTER → 2023-01-31 09:50 | Outpatient (BNVA) | payer MEDICARE, MEDICAID, SELFPAY | PROVIDERS: PCP Nurse Practitioner Family; Visit Provider Thoracic Surgery (Cardiothoracic Vascular Surgery) | DX: I87.2 Venous insufficiency (chronic) (peripheral) (principal) | CPT/HCPCS: 99213 ==

== ENCOUNTER → 2023-02-20 09:12 | Outpatient (BNVA) | payer MEDICARE, MEDICAID, SELFPAY | PROVIDERS: PCP Nurse Practitioner Family; Visit Provider Nurse Practitioner Family | DX: I10 Essential (primary) hypertension (principal); R53.83 Other fatigue; R73.09 Other abnormal glucose; E78.1 Pure hyperglyceridemia; E03.9 Hypothyroidism, unspecified | CPT/HCPCS: 80061; 83036; 84439; 84443; 84481 ==

== ENCOUNTER 2023-03-12 05:51 | Day surgery (SDC) | payer MEDICARE, MEDICAID, SELFPAY ==
[2023-03-11 12:47] VITALS: BMI 45.6
--- NOTE | 2023-03-12 | USCV_ITS ---
Yu Mo Age: 57 Gender: F : 1965 Exam Date: 03/12/2023 07:17 Ordering Phys: Trever Kramer MD (Andy) ([email or web address]) Technologist: Kwame Ulloa [place]am [place] [facility] [place]ication: venous ablat PROCEDURES: normal ablation procedure good flow in epigastric FINDINGS: The venous interrogation revealed patent inferior gastric vein and the greater saphenous vein proximal to the inferior epigastric CONCLUSIONS Patent inferior epigastric and greater saphenous vein segment proximal to the inferior epigastric Dr Weston Higgins MD [facility] (Electronically Signed) Final Date: 12 March 2023 20:23 S
[2023-03-12 06:00] VITALS: BP 156/83; PULSE 64; RESP 18; TEMP 36.2; O2SAT 96
[2023-03-12 06:10] VITALS: BMI 45.6
--- NOTE | 2023-03-12 06:25 | P.HP_ITS ---
Providers/Chief Complaint Admitting Physician: Dr. Kramer Primary Care Provider: TAQUERIA Hernandez History of Present Illness Yu Mo is a 57 year old female whom I originally saw in June of last year for complaints of discomfort with prolonged standing with her right lower extremity. Subsequent duplex imaging revealed substantial venous reflux at the saphenofemoral junction on the right side extending down to the mid leg region. He was subsidy scheduled for consideration for RF catheter ablation after a trial of compressive therapy revealed improved symptoms. 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 Review of Systems Const: Denies: fever(s) or chills Eyes: Denies: change in vision Card: Denies: chest pain, palpitations or syncope Resp: Denies: dyspnea or productive cough GI: Denies: abdominal pain, nausea or vomiting Musc: Reports: back pain, extremity pain, extremity swelling and limited range of motion; Denies: neck pain Neuro: Reports: headache(s); Denies: weakness in extremities Psych: Reports: anxiety Medications/Allergies Home Medications Medication Instructions Recorded Confirmed Last Taken Type diabetic shoes with 3 molded #1 ea 06/27/21 02/27/23 Unknown Rx inserts blood-glucose meter (SMT Research and DevelopmentTouch #1 ea 01/23/22 02/27/23 Unknown Rx Verio Flex Start kit) losartan 50 mg tablet 50 mg PO DAILY #90 tabs 01/23/22 03/11/23 Unknown Rx aspirin 81 mg tablet,delayed 81 mg PO DAILY 04/24/22 03/11/23 Unknown History release (Adult Aspirin Regimen) cetirizine 10 mg capsule (All Day 10 mg PO DAILY PRN Allergy Symptoms 04/24/22 0 03/11/23 Unknown History Allergy (cetirizine)) cholestyramine (with sugar) 4 gram 4 g PO DAILY PRN diarrhea 30 days 07/09/22 03/11/23 Unknown Rx oral powder (Questran) #348.6 grams hydrocortisone butyrate 0.1 % 1 applic topical DAILY PRN skin 10/24/22 03/11/23 Unknown Rx topical ointment irritation #45 grams blood sugar diagnostic (SMT [employer]Touch See Rx Instructions .Route 10/26/22 03/11/23 Unknown Rx Verio test strips) .COMPLEX #100 ea lancets 30 gauge (SMT Research and DevelopmentTouch Delica #100 ea 10/26/22 02/27/23 Unknown Rx Plus Lancet) metronidazole 1 % topical gel 1 applic topical DAILY #60 grams 11/12/22 03/11/23 Unknown Rx (Metrogel) mupirocin 2 % topical ointment 1 applic topical BID #15 grams 12/27/22 03/11/23 Unknown Rx furosemide 20 mg tablet See Rx Instructions .Route 01/25/23 03/11/23 Unknown Rx .COMPLEX #60 tabs fluconazole 150 mg tablet 150 mg PO Q3D 2 doses #2 tabs 02/20/23 03/11/23 Unknown Rx (Diflucan) ibuprofen 800 mg tablet 800 mg PO Q8H PRN pain #60 tabs 02/27/23 03/11/23 Unknown Rx ergocalciferol (vitamin D2) 1,250 1,250 mcg PO DIRECTED 03/11/23 Unknown History mcg (50,000 unit) capsule omega-3 acid ethyl esters 1 gram 1 cap PO BID 03/11/23 03/11/23 Unknown History capsule pantoprazole 40 mg tablet,delayed 40 mg PO DAILY 03/11/23 03/11/23 Unknown History release potassium chloride 10 mEq 10 meq PO DAILY 03/11/23 03/11/23 Unknown History tablet,extended release Allergies Allergy/AdvReac Type Severity Reaction Status Date / Time codeine Allergy Mild unknown Verified 03/11/23 12:41 azithromycin Allergy itching/throwing Verified 03/11/23 12:41 up milnacipran [From Savella] Allergy unknown Verified 03/11/23 12:41 tetracycline Allergy unknown Verified 03/11/23 12:41 PFSH Acute PFSH: Medical History Albuminuria Anxiety and depression Breast cancer screening by mammogram Callus of foot Chronic back pain DDD (degenerative disc disease), lumbar Decreased GFR Diverticulitis Environmental and seasonal allergies Essential hypertension, benign Fatigue Fibromyalgia GERD (gastroesophageal reflux disease) H/O adenomatous polyp of colon Heart palpitations Hemoglobin A1c less than 7.0% Hypothyroid Intermittent claudication Patient has pain with walking in lower legs, worse on right Low back pain Low vitamin B12 level Lower respiratory infection Mixed hyperlipidemia Obesities, morbid Oral herpes Primary osteoarthritis involving multiple joints Shortness of breath Thoracic back pain Type 2 diabetes mellitus with diabetic neuropathy Vitamin D deficiency Surgical History H/O bladder repair surgery removal of the bladder sling--- performed in [place]. Notified by company of sling defect. H/O section 1980 and 1981 H/O colonoscopy with polypectomy Last colonoscopy done 03/[address] Knight. Suggested repeat 2-3 years H/O laparoscopy (~10/23/05) Laparoscopic MEL, BSO, resection of vaginal septum, transobturator suburethral sling with cystoscopy-- performed at [facility] [place] by Frederick H/O: hysterectomy due to endometriosis and vaginal bleeding -- before 2000 performed by rebecca de paz S/P cholecystectomy Family History Family/Other Breast cancer Maternal Aunt--dx age late 50's Father Colon cancer dx age 78 Diabetes Stroke Mother Diabetes Hypercholesteremia Hypertension Sister Thyroid disease Denies family history of Ovarian cancer Uterine cancer Social History Smoking and tobacco status: never smoked Alcohol intake: never Substance/Drug Use: never Lives independently: Yes Household members: none Housing: Apartment Marital status: Single Number of children: 2 Pets and animals: No Vitals/I&O/Wt Last Vital Signs O2 Del Method Room Air 03/12/23 06:07 Weight last 48 hrs Weight 300 lb Weight 300 lb Physical Exam Const: COMMON NORMALS: no acute distress and patient oriented x3; negative for average body habitus (Obese) HENMT: COMMON NORMALS: normocephalic, atraumatic, hearing grossly normal bilaterally and external ears normal Neck/C-Spine: COMMON NORMALS: full ROM, no lymphadenopathy and No carotid bruits Resp: COMMON NORMALS: normal respiratory effort, No use of accessory muscles and clear to auscultation bilaterally Cardio: COMMON NORMALS: regular rate, regular rhythm and S1 normal heart sound present GI: COMMON NORMALS: Normal to inspection, nondistended, normoactive bowel sounds present and Soft to palpation INSPECTION: Yes central obesity Extremity: NARRATIVE EXTREMITY EXAM: Bilateral varicosities right greater than left. Largest concentration is on the medial proximal aspect of the right thigh. There is mild to modest lower extremity edema with very early skin discoloration on the right side. Negative Homans' sign. No active ulcerations or history for ulcerations. CEAP classification is C4 a Neuro: COMMON NORMALS: patient oriented x3, moves all extremities, no focal motor deficits, no sensory deficits noted and gait normal Psych: COMMON NORMALS: mental status grossly normal A&P Assessment and plan (1) Venous insufficiency of right leg: Pleasant 57-year-old female with highly symptomatic venous reflux of the right lower extremity with increased discomfort with prolonged standing. She did have some symptomatic improvement with compression therapy. Previous scheduled interventions had to be postponed. She now represents for attempt at RF catheter ablation for symptomatic improvement of her reflux disease. I did discuss with her that with her substantial obesity, there may be limitations to quality improvement. She states understanding. Details and contact the procedure were carefully discussed risk reviewed include deep venous thrombosis. Inability to complete the procedure. Pain after the procedure. Bleeding, infection, acute or chronic skin changes, need for further procedures, need for continued compressive therapy, failure to improve degree number of varicosities, and subsequent need for further procedures or phlebectomy. All questions have been answered. Consents have been provided for review and signature. Attestations Medical Necessity Statement*: Highly symptomatic venous reflux disease of the right lower extremity. Coding Level of Care Code Acute Code for Chg Fwd Diagnoses Venous insufficiency of right leg I87.2
[2023-03-12] MEDS: sodium chloride 0.9% 1,000 ML 30 ML (06:58)
[2023-03-12] MEDS: diazePAM 5 mg Tablet PO (06:58)
[2023-03-12] MEDS: lidocaine 2% INJ 20 mL 3 ML INJECTION (07:49)
--- NOTE | 2023-03-12 08:21 | P.OP_ITS ---
Operative Report Date of procedure: March 12, 2023 Pre-op diagnosis: Preop Diagnosis symptomatic venous reflux right lower extremity Post-op diagnosis: same Procedure done: Radiofrequency catheter ablation of the right greater saphenous vein Pathology: none sent Surgeon: Trever Kramer Anesthesia: Local Estimated blood loss (mL): 5 Complications: None Condition: stable Disposition: same day Brief History: Ms. Mo is a 57-year-old female with substantial venous insufficiency of the right greater saphenous vein with protracted reflux by ultrasound. She was likely admitted for planned RF frequency catheter ablation of the right greater saphenous vein to decrease her symptomatology. Details of risk of procedure were reviewed. Proper consents have been reviewed and signed. Procedure: The insufficient saphenous veinon the right side was verified by ultrasound and diagrammed on the overlying skin. The varicose tributary veins and suitable access sites were identified and mapped. Appropriate timeout was completed and confirmed by all members present. The right lower extremity had been appropriately marked. The affected right lower extremity was prepped and draped in the usual sterile fashion. Ms. Mo was placed in reverse Trendelenburg position. Tumescent was instilled in the skin overlying the access site for local anesthesia. The vein was accessed in the right proximal calf region using ultrasound guidance and the Seldinger technique, a guidewire was introduced through the needle, which was then exchanged over the guidewire for a 7F sheath. The RF catheter was placed on the sterile field, flushed and wiped down, prepared, and connected by a sterile cable. The patient was placed in Trendelenburg position. After RF catheter position was verified by ultrasound, tumescent anesthesia was infiltrated, under ultrasound guidance, precisely into the perivenous compartment along the entire length of vein. After the RF catheter position was again confirmed with ultrasound imaging, and under direct external compression along the length of the heating element, RF energy was applied. The vein was segmentally ablated until the treatment length is completed. Device temperature was maintained at 120 +/- degrees C with an initial power level of 40W dropping to below 20W for each treatment. Total vein length treated 30 cm. Vein diameter 1.2 cm. Total cycles of RF 15. Time 5 min utes and 0 seconds. Repeat ultrasound of the right greater saphenous vein was performed, confirming successful treatment with patent epigastric vessel. The catheter and sheath were withdrawn and hemostasis established with direct pressure. After assuring hemostasis, the skin incision over the saphenous vein was closed with a bandage and a graduated compression stocking was applied from the level of the foot to the most proximal length of the thigh.
[2023-03-12 08:52] VITALS: BP 153/73; PULSE 62; RESP 18; TEMP 36.6; O2SAT 98
[2023-03-12 09:17] VITALS: BP 142/90; PULSE 61; RESP 17; TEMP 36.6; O2SAT 98
== END 2023-03-12 09:19 | disposition home or self-care (01) ==
PROVIDERS: PCP Nurse Practitioner Family; Visit Provider Thoracic Surgery (Cardiothoracic Vascular Surgery)
DX: I87.2 Venous insufficiency (chronic) (peripheral) (principal); I83.811 Varicose veins of right lower extremity with pain; I10 Essential (primary) hypertension; M79.7 Fibromyalgia; K21.9 Gastro-esophageal reflux disease without esophagitis; E03.9 Hypothyroidism, unspecified; E78.2 Mixed hyperlipidemia; E66.9 Obesity, unspecified; Z68.42 Body mass index [BMI] 45.0-49.9, adult
CPT/HCPCS: 36475; C1887; J7030

== ENCOUNTER 2023-03-19 07:32 | Outpatient (CLI) | payer MEDICARE, MEDICAID, SELFPAY ==
--- NOTE | 2023-03-19 09:00 | USCV_ITS ---
Chepe Yu Age: 57 Gender: F : 1965 Exam Date: 03/19/2023 08:12 Ordering Phys: Trever Kramer MD (Andy) ([email or web address] [place] Technologist: SHOBHA Exam [facility]: [facility] [place] Indication: S/P RIGHT GSV ABLATION HISTORY: S/P RIGHT GSV ABLATION X1 WEEK AGO PROCEDURES: Venous duplex imaging was performed in only the right lower extremity. The following venous structures were evaluated: common femoral vein, profunda vein, proximal portion of the greater saphenous vein, superficial femoral vein, and the popliteal vein. In addition, the posterior tibial and peroneal trunk were evaluated. Serial compression, augmentation maneuvers, and spectral Doppler flow evaluation were performed. FINDINGS: Right GSV compressible 3.0cm from femoral vein junction. Normal 2-D Doppler and augmentation and compressibility throughout the lower extremity venous structures. Additional imaging through the proximal calf veins also reveals no thrombus. Limited evaluation of the greater saphenous vein is patent with no thrombus. CONCLUSIONS No DVT right lower extremity. GSV occluded 3 cm from femoral vein junction. Dr. Kianna Mcgarry DO (Electronically Signed) Final Date: 19 March 2023 09:18 S
== END 2023-03-19 07:33 | disposition home or self-care (01) ==
LOC: RAD 07:34
PROVIDERS: PCP Nurse Practitioner Family; Visit Provider Thoracic Surgery (Cardiothoracic Vascular Surgery)
DX: I82.811 Embolism and thrombosis of superficial veins of right lower extremity; Z98.890 Other specified postprocedural states
CPT/HCPCS: 93971

== ENCOUNTER → 2023-03-28 10:52 | Outpatient (BNVA) | payer MEDICARE, MEDICAID, SELFPAY | PROVIDERS: PCP Nurse Practitioner Family; Visit Provider Thoracic Surgery (Cardiothoracic Vascular Surgery) | DX: Z09 Encounter for follow-up examination after completed treatment for conditions other than malignant neoplasm (principal) | CPT/HCPCS: 99024 ==

== ENCOUNTER → 2023-05-27 10:19 | Outpatient (BNVA) | payer MEDICARE, MEDICAID, SELFPAY | PROVIDERS: PCP Nurse Practitioner Family; Visit Provider Nurse Practitioner Family | DX: E11.40 Type 2 diabetes mellitus with diabetic neuropathy, unspecified (principal); I10 Essential (primary) hypertension; R53.83 Other fatigue | CPT/HCPCS: 80053; 83036; 84443; 85025 ==

== ENCOUNTER → 2023-06-11 15:48 | Outpatient (BNVA) | payer MEDICARE, MEDICAID, SELFPAY | PROVIDERS: PCP Nurse Practitioner Family; Visit Provider Nurse Practitioner Family | DX: E53.8 Deficiency of other specified B group vitamins (principal); M79.7 Fibromyalgia | CPT/HCPCS: 82306; 82607 ==

== ENCOUNTER 2023-07-12 12:15 | Outpatient (CLI) | payer MEDICARE, MEDICAID, SELFPAY ==
--- NOTE | 2023-07-12 12:45 | USCV_ITS ---
Yu Mo Age: 57 Gender: F : 1965 Exam Date: 07/12/2023 13:11 Ordering Phys: Kimberly Valdez-Jh HEAVY EQUIPMENT SERVICE MANAGER Technologist: CT [place]am [place] [facility] [place]ication: claudication Risk Factors: Previous Vascular Surgery: RIGHT LEFT BP: 147.0 / 83.00 BP: 144.0/ 79.00 0 0 Waveform Velocity (cm/s) Velocity (cm/s) Waveform Triphasic 129.0 Iliac Prox 143.8 Triphasic Triphasic 124.5 Iliac Mid 123.0 Triphasic Triphasic 109.1 Iliac Distal 123.0 Triphasic Triphasic 116.1 PARTS COUNTER SALESPERSON 118.2 Triphasic Triphasic 110.5 SFA Prox 135.8 Triphasic Triphasic 106.3 SFA Mid 98.6 Triphasic Triphasic SFA Dist Triphasic 106.1 111.1 Triphasic 76.5 POP 94.5 Triphasic Triphasic 73.8 HAND WOVEN CARPET [employer] RUG MENDER 58.4 Triphasic Triphasic 96.1 DPA 79.2 Triphasic 1.0 LALITO 1.0 FINDINGS Resting LALITO of 1.0 bilaterally Normal arterial Doppler waveforms and Doppler velocities Some intimal thickening of the popliteal and infrapopliteal vessels No unstable plaques or lesions noted CONCLUSIONS Normal resting ABIs bilaterally Normal arterial Doppler waveforms and velocities No significant arterial obstruction, based on the above findings Intimal thickening was noted in the popliteal and infrapopliteal vessels Dr Weston Higgins MD [facility] (Electronically Signed) Final Date: 14 July 2023 22:34 S
== END 2023-07-12 12:16 | disposition home or self-care (01) ==
LOC: RAD 12:15
PROVIDERS: PCP Nurse Practitioner Family; Visit Provider Nurse Practitioner Family
DX: I73.9 Peripheral vascular disease, unspecified (principal)
CPT/HCPCS: 93925

== ENCOUNTER → 2023-09-13 08:40 | Outpatient (BNVA) | payer MEDICARE, MEDICAID, SELFPAY | PROVIDERS: PCP Nurse Practitioner Family; Visit Provider Specialist | DX: M17.11 Unilateral primary osteoarthritis, right knee (principal) | CPT/HCPCS: 20610; J7318 ==

== ENCOUNTER → 2023-10-01 14:34 | Outpatient (BNVA) | payer MEDICARE, MEDICAID, SELFPAY | PROVIDERS: PCP Nurse Practitioner Family; Visit Provider Nurse Practitioner Family | DX: N39.0 Urinary tract infection, site not specified (principal) | CPT/HCPCS: 81000; 87086 ==

== ENCOUNTER → 2023-10-03 13:53 | Outpatient (BNVA) | payer MEDICARE, MEDICAID, SELFPAY | PROVIDERS: PCP Nurse Practitioner Family; Visit Provider Nurse Practitioner Family | DX: L71.8 Other rosacea (principal); L57.8 Other skin changes due to chronic exposure to nonionizing radiation; L81.4 Other melanin hyperpigmentation; D18.01 Hemangioma of skin and subcutaneous tissue | CPT/HCPCS: 99204 ==

== ENCOUNTER → 2023-10-16 10:06 | Outpatient (BNVA) | payer MEDICARE, MEDICAID, SELFPAY | PROVIDERS: PCP Nurse Practitioner Family; Visit Provider Nurse Practitioner Family | DX: N39.0 Urinary tract infection, site not specified (principal); M79.7 Fibromyalgia; R73.09 Other abnormal glucose; I10 Essential (primary) hypertension | CPT/HCPCS: 80053; 80061; 81000; 82306; 83036 ==

== ENCOUNTER → 2024-01-22 08:03 | Outpatient (BNVA) | payer MEDICARE, MEDICAID, SELFPAY | PROVIDERS: PCP Nurse Practitioner Family; Visit Provider Nurse Practitioner Family | DX: I10 Essential (primary) hypertension (principal); E11.40 Type 2 diabetes mellitus with diabetic neuropathy, unspecified | CPT/HCPCS: 80053; 80061; 83036 ==

== ENCOUNTER 2024-03-04 09:24 | Outpatient (CLI) | payer MEDICARE, MEDICAID, SELFPAY ==
--- NOTE | 2024-03-04 09:20 | MM_ITS ---
WS: [id number] SCREENING DIGITAL TOMOSYNTHESIS MAMMOGRAM WITH CAD HISTORY: SCREENING COMPARISON: 04/03/2021 Bilateral CC and MLO with tomosynthesis views submitted. Synthetic mammography reviewed. Computer aid ed detection analyzed. Breast composition: The breasts are almost entirely fatty. No suspicious masses, microcalcifications or architectural distortion. MM/[place] [id number] IMPRESSION: BI-RADS: 1-Negative FOLLOW UP: 1 Year Follow-up
== END 2024-03-04 09:25 | disposition home or self-care (01) ==
LOC: MOBLMAM 09:32
PROVIDERS: PCP Nurse Practitioner Family; Visit Provider Nurse Practitioner Family
DX: Z12.31 Encounter for screening mammogram for malignant neoplasm of breast
CPT/HCPCS: 77063; 77067

== ENCOUNTER → 2024-03-20 10:00 | Outpatient (BNVA) | payer MEDICARE, MEDICAID, SELFPAY | PROVIDERS: PCP Nurse Practitioner Family; Visit Provider Specialist | DX: M17.11 Unilateral primary osteoarthritis, right knee (principal); Z71.89 Other specified counseling | CPT/HCPCS: 20610; J7318 ==

== ENCOUNTER 2024-04-17 06:02 | Outpatient (CLI) | payer MEDICARE, MEDICAID, SELFPAY ==
[2024-04-17 06:19] VITALS: BMI 46.3
--- NOTE | 2024-04-17 06:19 | ECG_ITS ---
[facility] Test Date: 2024-04-17 Pat Name: Yu Mo Department: Room: Gender: Female Linter Operator: : 1965 Requested By: Eddie Tran Order Number: [id number] Salvador MD: Eddie Tran M.D. Interpretive Statements LEXISCAN STRESS TEST Procedure: At the baseline, the blood pressure was 152/102 mmHg with a heart rate of 69 bpm. The electrocardiogram showed normal sinus rhythm, normal axis with normal ST and T's. The Lexiscan was infused over a period of 20 seconds. A total of 0.4 mg of Lexiscan was infused. The stress phase was continued for a total of 5 minutes. Heart rate was at the end of stress phase was 85 bpm and a blood pressure of 170/88 mmHg. The EKG at the peak infusion revealed normal sinus rhythm with no significant ST-T wave changes. Sestamibi was injected 20 seconds after the Lexiscan infusion. Blood pressure at the end of recovery phase was 172/89 mmHg with a heart rate of 77 bpm. Conclusion: 1. Normal EKG response to Lexiscan infusion 2. No Lexiscan induced chest pain or cardiac arrhythmia. 3. Normal blood pressure and heart rate response. 4. Sestamibi/sestamibi perfusion scan pending; see separate report. Electronically Signed On 04-18-2024 18:25:26 CDT by Eddie Tran M.D. [email or web address]
--- NOTE | 2024-04-17 06:20 | NMCV_ITS ---
NM jacklyn perf SPECT r/s* [id number] Yu Mo Age: 58 Gender: F : 1965 Exam Date: 04/17/2024 06:55 Ordering Phys: Eddie Tran M.D ([email or web address]) Technologist: KRUPA Damian Exam Location: [facility] Indications: cp STRESS TEST [facility] IMAGE PROTOCOL Rest/Stress 1 Lexiscan Day Radiopharmaceutical Dose (mCi) Administration Site Administered by Rest: Tc-99m 10.8 IV KRUPA Miles Sestamibi Stress:Tc-99m 33.0 IV KRUPA Miles Sestamibi Rest: 17-Apr-2024 60 Discovery 630 Stress: 17-Apr-2024 30 Discovery 630 0.4mg Lexiscan. Images obtained in supine and prone position. SPECT RESULTS Technical Quality: Good Raw Data Analysis: Adequate Image Corrections: No attenuation or motion correction applied Summed Stress Score: 7 Summed Rest Score: 5 Summed Difference Score: 3 PERFUSION FINDINGS Medium to large sized area of mostly reverible perfusion defect seen in the lateral and inferolateral marino. This is consistent with medium sized area of prior infarct with medium to large area of primo-infarct ischemia in left circumflex artery territory. FUNCTIONAL RESULTS (calculated via Gated SPECT) Stress Image LV EF (%): 73 Stress EDV (mL):83 TID: 0.91 Stress ESV (mL):22 FUNCTIONAL FINDINGS: There is normal left ventricular systolic function. IMPRESSIONS 1. Abnormal myocardial perfusion imaging with medium sized area of prior infarct with medium to large sized area of primo-infarct ischemia in left circumflex artery territory. 2. LV systolic function is normal. Eddie Tran MD (Electronically Signed) Final Date: 17 April 2024 09:32 S
[2024-04-17] MEDS: regadenoson 0.4 Mg/5 ml Syringe IVP (07:46)
[2024-04-17 08:14] VITALS: BP 153/89; PULSE 62
== END 2024-04-17 06:03 | disposition home or self-care (01) ==
PROVIDERS: PCP Nurse Practitioner Family; Visit Provider Internal Medicine
DX: R07.9 Chest pain, unspecified (principal); R06.02 Shortness of breath
CPT/HCPCS: 36415; 78452; 93017; 96374; A9500; J2785

== ENCOUNTER 2024-04-29 08:32 | Outpatient (CLI) | payer MEDICARE, MEDICAID, SELFPAY ==
--- NOTE | 2024-04-29 09:15 | USCV_ITS ---
Yu Mo Age: 58 Gender: F : 1965 Exam Date: 04/29/2024 09:16 Ordering Phys: Eddie Tran M.D ([email or web address]) Technologist: CHARLA [place]am [place] [facility] [place] [facility] [place] Indication: HISTORY: Pt states Rt Calf ablasion early this year 2023. PROCEDURES: FINDINGS: Rt LE all deep and superficial veins appear patent Venous reflux was noted in the below-knee segment of the greater saphenous vein on the right side with the reflux time of 0.53 seconds. The venous segment was measuring 0.28 cm in diameter and depth of 1.67 cm. On the left side, venous reflux was noted in the mid segment of the greater saphenous vein with a reflux time of 1.76 seconds, diameter of 0.51 cm at a depth of 3.01 cm The veins were found to be easily compressible with spontaneous blood flow. CONCLUSIONS No evidence of DVT in the above-mentioned identifiable veins. Significant venous reflux of greater than 500 ms was noted(530 ms) at the level of the below-knee segment of the greater saphenous vein on the right side. Significant venous reflux of greater than 500 ms(1760 ms) was noted at the level of the mid greater saphenous vein on the left side. The venous diameter and the depth from the surface are as mentioned above. The greater saphenous vein and the small saphenous veins were found to be patent bilaterally Dr Weston Higgins MD [facility] (Electronically Signed) Final Date: 30 April 2024 08:09 S
== END 2024-04-29 08:33 | disposition home or self-care (01) ==
LOC: RAD 08:32
PROVIDERS: PCP Nurse Practitioner Family; Visit Provider Internal Medicine
DX: I83.893 Varicose veins of bilateral lower extremities with other complications (principal); I83.813 Varicose veins of bilateral lower extremities with pain; R06.02 Shortness of breath
CPT/HCPCS: 93970

== ENCOUNTER 2024-05-07 08:10 | Outpatient (CLI) | payer MEDICARE, MEDICAID, SELFPAY ==
[2024-05-07] MEDS: diphenhydrAMINE 50 mg Capsule PO (09:12)
[2024-05-07 09:13] VITALS: BP 184/86; PULSE 78; RESP 18; TEMP 36.4; O2SAT 100; BMI 46.0
[2024-05-07 09:25] LABS: Basophils % 0.5 %; Eosinophils # 0.1 10^3/uL (0.0-0.8); Eosinophils % 1.7 %; Hematocrit 44.6 % (36-47); Lymphocytes # 1.9 10^3/uL (0.8-4.8); Lymphocytes % 29.2 %; Mean Corpuscular HGB Conc 32.3 g/dL (30-55); Mean Corpuscular Hemoglobin 29.1 pg (27-33); Mean Corpuscular Volume 90.3 fl (85-98); Mean Platelet Volume 10.7 fL (7.4-10.4); Monocytes # 0.5 10^3/uL (0.2-0.9); Monocytes % 7.8 %; Neutrophils # 3.94 10^3/uL (1.8-7.7); Neutrophils % 60.6 %; Nucleated Red Blood Cells % 0 %; Platelet Count 197 10^3/cmm (157-399); Red Blood Count 4.94 10^6/uL (3.85-5.65); Red Cell Distribution Width 12.4 % (12.1-15.1)
[2024-05-07 09:43] LABS: Anion Gap 13.4 (5-19); Blood Urea Nitrogen 18 mg/dL (8-23); Calcium 8.9 mg/dL (8.5-10.5); Carbon Dioxide 26 mmol/L (22-29); Chloride 106 mmol/L (98-107); Creatinine Clr Calc Pharmacy 110.1638; Glomerular Filtration Rate 73.2 mL/min (90-130); Glucose 147 mg/dL (65-115); Osmolality Calculated 297 mOsm/kg (285-295); Potassium 4.4 mmol/L (3.5-5.1); Sodium 141 mmol/L (136-145)
--- NOTE | 2024-05-07 09:43 | W.PM.OPSFHP ---
Same Day Surgery H&P Indication for Procedure/HPI DATE OF PROCEDURE: May 07, 2024 CHIEF COMPLAINT/INDICATIONFOR SURGICAL PROCEDURE: Chest pain/abnormal stress test PREOP DIAGNOSIS: Chest pain/abnormal stress test PLANNED PROCEDURE: Operation Date: 05/07/24 10:00 Proposed Procedures p Cardiac Catheterization - [facility] w/wo LV & Coros(Left) - Eddie Tran M.D Possible percutaneous coronary intervention 58-year-old woman with past medical history of hypertension who has been having chest discomfort episodes and dyspnea exertion. She had stress test that was abnormal. Plan for coronary angiogram with possible percutaneous coronary intervention Medications/Allergies* Home Medications Medication Instructions Recorded Confirmed Type aspirin 81 mg tablet,delayed 81 mg PO DAILY 04/24/22 05/07/24 History release (Adult Aspirin Regimen) pantoprazole 40 mg tablet,delayed 40 mg PO DAILY 03/11/23 05/06/24 History release Allergies/Adverse Reactions Allergy/AdvReac Type Severity Reaction Status Date / Time lisinopril Allergy Severe ALGY-Swell Verified 05/06/24 13:37 Lip/Tongue/Throat codeine Allergy Mild unknown Verified 05/06/24 13:37 azithromycin Allergy itching/throwing Verified 05/06/24 13:37 up milnacipran [From Savella] Allergy unknown Verified 05/06/24 13:37 tetracycline Allergy unknown Verified 05/06/24 13:37 Current Medications: Generic Name Dose Route Start Last Admin Trade Name Freq PRN Reason Stop Dose Admin Sodium Chloride 1,000 mls @ 50 mls/hr 05/07/24 09:00 05/07/24 09:13 Sodium Chloride 0.9% IV 05/08/24 04:59 Not Given .Q20H ONE Pertinent History/Comorbid Conditions* Medical History (Updated 03/24/24 @ 14:25 by Eddie Tran M.D) Shortness of breath Heart palpitations Intermittent claudication Patient has pain with walking in lower legs, worse on right Breast cancer screening by mammogram Hemoglobin A1c less than 7.0% Albuminuria Decreased GFR Vitamin D deficiency Lower respiratory infection Environmental and seasonal allergies Obesities, morbid Fibromyalgia Anxiety and depression DDD (degenerative disc disease), lumbar Chronic back pain Low vitamin B12 level Thoracic back pain Low back pain Fatigue Diverticulitis Callus of foot Hypothyroid Oral herpes Primary osteoarthritis involving multiple joints Mixed hyperlipidemia H/O adenomatous polyp of colon GERD (gastroesophageal reflux disease) Essential hypertension, benign Type 2 diabetes mellitus with diabetic neuropathy Surgical History (Updated 03/15/21 @ 11:58 by TAQUERIA Cullen) H/O bladder repair surgery removal of the bladder sling--- performed in [place]. Notified by company of sling defect. H/O laparoscopy (~10/23/05) Laparoscopic MEL, BSO, resection of vaginal septum, transobturator suburethral sling with cystoscopy-- performed at [facility] [place] by Frederick H/O colonoscopy with polypectomy Last colonoscopy done 03/[address] Knight. Suggested repeat 2-3 years H/O section 1980 and 1981 H/O: hysterectomy due to endometriosis and vaginal bleeding -- before 2000 performed by irena S/P cholecystectomy Family History (Updated 06/29/20 @ 14:46 by Cielo Barbosa) Colon cancer Father dx age 78 Diabetes Father Mother Hypercholesteremia Mother Breast cancer Family/Other Maternal Aunt--dx age late 50's Hypertension Mother Thyroid disease Sister Stroke Father Denies family history of Ovarian cancer Uterine cancer Social History Smoking and tobacco/nicotine status: never used tobacco/nicotine Alcohol intake: never Substance/Drug Use: never Lives independently: Yes Household members: none Housing: Apartment Marital status: Single Number of children: 2 Pets and animals: No Pertinent Exam Findings alert, oriented x 3, clear to auscultation bilaterally and regular rate & rhythm Conscious Sedation Assessment PATIENT ASSESSED PRIOR TO SEDATION, WITH NO CHANGE NOTED: Yes AIRWAY EVAL/ANESTHESIA PLAN: normal airway, ASA III, Local Anesthesia, Risks, benefits & alternatives of sedation and/or procedure discussed and Patient agrees to continue as planned ADDITIONAL INFORMATION: Moderate sedation Recommendations Surgery/Procedure today (Left heart cath with possible percutaneous coronary intervention) Coding Level of Care Code Acute Code for Chg Fwd
--- NOTE | 2024-05-07 10:00 | XACV_ITS ---
Exam Room: 2 Ht: 173 cm Wt: 137 kg BSA: 2.64 m2 Gender: Female : 1965 Any Known Allergies: Other Exam Priority: Routine Procedure(s): Procedure Description: Diagnostic procedure Procedure Description: Left Heart Catheterization Procedure Description: Left ventriculography Procedure Description: Coronary Angiography Diagnostic Cath Status: Elective Diagnostic Findings * INDICATION: Chest pain/abnormal stress test. * No significant disease noted in the Left Main, Left Anterior Descending, Right, or Circumflex coronary arteries. * Coronary angiography shows right dominance. Conclusions 1. No significant disease noted in the Left Main, Left Anterior Descending, Right, or Circumflex coronary arteries. 2. Hyperdynamic left ventricular systolic function. Ejection fraction of 70%. Recommendations * Aggressive risk factor control. * Outpatient cardiology follow up in 2 weeks. Interventional RX Recommendation: medical therapy and/or counseling Diagnostic RX Recommendation: medical therapy and/or counseling Anticoagulation: Heparin Ventriculography Ejection Fraction: 70.0 % Pressures Phase:Rest AO : / ( 2 ) @ 11:10:00 AM 167 / 81 ( 119 ) @ 11:13:00 AM 165 / 81 ( 117 ) @ 11:13:00 AM LV : 163 / -13 / 15 @ 11:13:00 AM 107 / 14 / 12 @ 11:13:00 AM Valves Phase:DefaultPhase AV : 0.0 @ 10:18:30 AM AV Mean Gradient: 0.0 @ 10:18:30 AM Clinical Evaluation EBL: 5mL-10mL Procedural Details Pre-Procedure Time Out. Identified patient by full name and date of as verbalized by the patient/guarantor. Does the consent match the physician's order: Yes. Accurate & Complete Informed Consent: Yes. Inpatient/Outpatient History & Physical on Chart: Yes. If H&P is completed, is and addenduem needed: No; If yes, is the addendum complete: N/A. Visualize and Verify Site with Patient/Guarantor: N/A. Relevant Radiology Images available: Yes. Pre-op teaching completed and patient verbalized understanding. The risks, benefits, and alternatives of sedation and/or procedure were discussed by physician. The patient agrees to continue. Procedure started. [facility] Clinical Fraility Score: 3: Managing Well. Plug Cutter Indications: Worsening Angina. Chest Pain Symptom Assessment: Atypical Angina. Correct patient, site and procedure confirmed by cath team. Current diagnosis: Chest Pain. PERRLA. Strong, equal hand junior recruiter bilaterally. Lungs clear x 5 lobes. IV Site on Arrival: 18 gauge in the left anticubital. IV Fluids: 0.9% NaCl at KVO. 0 mL infused prior to track laborer. Pre Procedural Pulses: bilateral dorsalis pedis was 3+. Pre Procedural Pulses: bilateral posterior tibial was 2+. Pre Procedural Pulses: bilateral radial was 3+. Oxygen started at 2liters/min via nasal canula. right groin was prepped with chloroprep then draped in the usual sterile fashion. right radial was prepped with chloroprep then draped in the usual sterile fashion. Baseline sample Acquired. HR: 67 BPM. Physician arrived. Physician scrubbed in. Immediate Pre-Procedure Time Out. Correct Patient: Yes; Correct Procedure: Yes; Correct Site: Yes; Correct Patient Position: Yes; Correct Supplies: Yes; Dried Flammable Prep: Yes; Blood Products Available: N/A;. Lidocaine 1% infiltrated to the right radial. Arterial access obtained. A 5 mauritanian TIG catheter in over wire. Multiple views taken of left coronary artery. Catheter redirected to the RCA. Multiple views taken of right coronary artery. Catheter removed over the exchange wire. A 5 mauritanian Angled Pig catheter in over wire. EDP Sample taken: LV 163/-14,15; HR: 79 BPM; SpO2: 99%. LV gram performed in [place] @ 10 mL/second for a total of 30 mL. EDP Sample taken: LV 107/14,12; HR: 105 BPM; SpO2: 97%. Pullback taken: LV Off; AO 167/81(119); Mean: 0mmHg, Peak to Peak: 0mmHg, SEP: 6sec/min; HR: 92 BPM; SpO2: 98%. Catheter removed over the exchange wire. Vital chart was stopped. A TR Band was successful obtaining hemostatsis at the Right Radial artery insertion site. Post Procedure: Pulses reassessed and unchanged. PERRLA. Strong, equal hand junior recruiter bilaterally. No VTE prophylaxis required. Medication's Wasted: Lidocaine 1% = 18 mL. Medication's Wasted: Nitro = 49.8 mcg. Medication's Wasted: Heparin = 1000 units. Total IV fluids: 50 mL. Medication's Wasted: Other = Fentanyl 50 mcg. Complications: None. Estimated blood loss: 5mL-10mL. Responsiveness - Normal response to verbal stimuli; alert and oriented, PERRLA. Airway - Unaffected, no intervention required; spontaneous ventilation. Circulation: W/N/L, pulses unchanged. Nausea/Vomiting: No. Procedure completed. Patient transferred by wheelchair to 1st floor. Access Site Site: Right Radial artery Sheath Size: 6 Fr Hemostasis Method: TR Band Hemostasis Success: Successful Procedure Medications Start: 9:59 AM Stop: 9:59 AM Medication: Versed Amount: 1 mg Route: I.V. Start: 9:59 AM Stop: 9:59 AM Medication: Fentanyl Amount: 50 mcg Route: I.V. Start: 10:05 AM Stop: 10:05 AM Medication: Versed 1 mg and Fentanyl 25 mcg Amount: 1 Route: I.V. Start: 10:06 AM Stop: 10:06 AM Medication: Nitrogylcerin Amount: 200 mcg Route: I.A. Start: 10:08 AM Stop: 10:08 AM Medication: Heparin Amount: 5000 units Route: I.V. I, the attending physician, have reviewed and verified all procedure medications. Yes, all medications given per verbal order History/Risk Factors Hypertension: Yes Dyslipidemia: Yes Peripheral Arterial Disease (PAD): Yes Myocardial Infarction ([place]): No Obesity: No Renal Disease: No Tobacco Use: Never Prior Interventions PCI: No CABG: No Valve Surgery: No Report Signatures Finalized by Eddie Tran MD on 05/07/2024 10:44 AM
--- NOTE | 2024-05-07 10:41 | PC.NURSE ---
Patient transferred to CSU from laborer cheesemaking with a TR_band at 1030.
[2024-05-07 11:29] VITALS: BP 150/101; PULSE 60; RESP 13; TEMP 36.7; O2SAT 98
--- NOTE | 2024-05-07 13:40 | PC.NURSE ---
Patient's right radial TR-Band is removed slowly, 2ml's at a time. TR-band is removed and a dressing of a 2 x 2 and tegaderm. Patient tolerated well.
[2024-05-07 15:08] VITALS: BP 159/94; PULSE 68; RESP 17; O2SAT 99
--- NOTE | 2024-05-07 15:31 | PC.NURSE ---
Patient left via a wheelchair to private car with her brother. She was given discharge paperwork and stated understanding of this.
== END 2024-05-07 15:30 | disposition home or self-care (01) ==
LOC: CCL 08:15 → CSU 10:34
PROVIDERS: PCP Nurse Practitioner Family; Visit Provider Internal Medicine
DX: R07.89 Other chest pain (principal); R94.39 Abnormal result of other cardiovascular function study; I10 Essential (primary) hypertension; Z79.82 Long term (current) use of aspirin; E03.9 Hypothyroidism, unspecified; E78.2 Mixed hyperlipidemia; E11.40 Type 2 diabetes mellitus with diabetic neuropathy, unspecified
CPT/HCPCS: 36415; 80048; 85025; 93458; 96374; 99152; C1769; C1887; C1894; J1644; J2250; J3010; J3490; J7030; Q0163; Q9967

== ENCOUNTER → 2024-05-11 11:44 | Outpatient (BNVA) | payer MEDICARE, MEDICAID, SELFPAY | PROVIDERS: PCP Nurse Practitioner Family; Visit Provider Nurse Practitioner Family | DX: R35.0 Frequency of micturition (principal) | CPT/HCPCS: 81000 ==

== ENCOUNTER → 2024-05-25 12:53 | Outpatient (BNVA) | payer MEDICARE, MEDICAID, SELFPAY | PROVIDERS: PCP Nurse Practitioner Family; Visit Provider Nurse Practitioner Family | DX: I25.10 Atherosclerotic heart disease of native coronary artery without angina pectoris (principal); R60.0 Localized edema; I10 Essential (primary) hypertension | CPT/HCPCS: 36415; 80048; 83880; 99214 ==

== ENCOUNTER → 2024-06-24 09:49 | Outpatient (BNVA) | payer MEDICARE, MEDICAID, SELFPAY | PROVIDERS: PCP Nurse Practitioner Family; Referring Provider Nurse Practitioner Family; Visit Provider Psychiatry & Neurology Neurology | DX: R53.83 Other fatigue (principal); G62.9 Polyneuropathy, unspecified; E78.5 Hyperlipidemia, unspecified; E55.9 Vitamin D deficiency, unspecified; M79.7 Fibromyalgia; E03.9 Hypothyroidism, unspecified; E78.2 Mixed hyperlipidemia; E11.40 Type 2 diabetes mellitus with diabetic neuropathy, unspecified; I10 Essential (primary) hypertension | CPT/HCPCS: 36415; 82306; 82607; 82746; 83090; 83735; 83921; 84432; 84439; 84443; 84481; 86376; 86800; 99203 ==

== ENCOUNTER → 2024-10-20 08:17 | Outpatient (BNVA) | payer MEDICARE, MEDICAID, SELFPAY | PROVIDERS: PCP Nurse Practitioner Family; Referring Provider Psychiatry & Neurology Neurology; Visit Provider Internal Medicine | DX: R77.8 Other specified abnormalities of plasma proteins (principal); L65.9 Nonscarring hair loss, unspecified; Z86.39 Personal history of other endocrine, nutritional and metabolic disease; E78.2 Mixed hyperlipidemia | CPT/HCPCS: 36415; 84403; 84439; 84443; 86800; 99204 ==

== ENCOUNTER → 2024-11-02 07:42 | Outpatient (BNVA) | payer MEDICARE, MEDICAID, SELFPAY | PROVIDERS: PCP Nurse Practitioner Family; Visit Provider Podiatrist Foot & Ankle Surgery | DX: E11.40 Type 2 diabetes mellitus with diabetic neuropathy, unspecified (principal); M20.41 Other hammer toe(s) (acquired), right foot; M20.42 Other hammer toe(s) (acquired), left foot; M21.41 Flat foot [pes planus] (acquired), right foot; M21.42 Flat foot [pes planus] (acquired), left foot | CPT/HCPCS: 99204 ==

== ENCOUNTER 2025-03-31 09:28 | Outpatient (CLI) | payer MEDICARE, MEDICAID, SELFPAY ==
--- NOTE | 2025-03-31 09:40 | MM_ITS ---
WS: [id number] BILATERAL SCREENING DIGITAL TOMOSYNTHESIS MAMMOGRAM WITH CAD HISTORY: SCREENING COMPARISON: 03/04/2024, 04/03/2021 Bilateral CC and MLO views with tomosynthesis and synthetic mammography submitted. Computer aided detection analyzed. Breast composition: The breasts are almost entirely fatty. No suspicious masses, microcalcifications or architectural distortion. Benign calcifications. MM/MM scr BI tomosynthesis [id number] IMPRESSION: BI-RADS: 2 - Benign. FOLLOW UP: 1 Year Follow-up
== END 2025-03-31 09:29 | disposition home or self-care (01) ==
LOC: MOBLMAM 09:35
PROVIDERS: PCP Nurse Practitioner Family; Visit Provider Nurse Practitioner Family
DX: Z12.31 Encounter for screening mammogram for malignant neoplasm of breast (principal); Z00.00 Encounter for general adult medical examination without abnormal findings; M81.0 Age-related osteoporosis without current pathological fracture; I10 Essential (primary) hypertension; R73.09 Other abnormal glucose; R92.313 Mammographic fatty tissue density, bilateral breasts
CPT/HCPCS: 77063; 77067; 80053; 80061; 82306; 83036

== ENCOUNTER 2025-04-07 12:48 | Outpatient (CLI) | payer OTHER, MEDICAID, SELFPAY ==
--- NOTE | 2025-04-07 13:30 | XR_ITS ---
WS: [id number] DEXA (DUAL ENERGY X-RAY ABSORPTIOMETRY) Bone mineral density was performed using a [place] [employer] Bear machine. HISTORY: M81.0 - Age-related osteoporosis without current patholog... COMPARISON: None available. Lumbar spine BMD (L1-L4): 1.142 g/cm2 T score: -0.3 Z score: -0.2 Total hip BMD: Left: 0.920 g/cm2. T score: -0.7 Z score: -0.5 Right: 0.925 g/cm2. T score: -0.7 Z score: -0.5 10 year probability of a major osteoporotic fracture is 6.3%. XR/XR DEXA axial skeleton* 92476 IMPRESSION: NORMAL BONE MINERAL DENSITY based upon the WHO classification for females.
== END 2025-04-07 12:49 | disposition home or self-care (01) ==
LOC: RAD 12:48
PROVIDERS: PCP Nurse Practitioner Family; Visit Provider Nurse Practitioner Family
DX: M81.0 Age-related osteoporosis without current pathological fracture (principal)
CPT/HCPCS: 77080

== ENCOUNTER → 2025-04-27 12:29 | Outpatient (BNVA) | payer OTHER, MEDICAID, SELFPAY | PROVIDERS: PCP Nurse Practitioner Family; Visit Provider Internal Medicine | DX: M79.89 Other specified soft tissue disorders (principal); I10 Essential (primary) hypertension; E78.2 Mixed hyperlipidemia; E11.40 Type 2 diabetes mellitus with diabetic neuropathy, unspecified; M79.7 Fibromyalgia | CPT/HCPCS: 99214 ==

== ENCOUNTER → 2025-07-07 10:35 | Outpatient (BNVA) | payer OTHER, MEDICAID, SELFPAY | PROVIDERS: PCP Nurse Practitioner Family; Visit Provider Nurse Practitioner Family | DX: R73.09 Other abnormal glucose (principal); I10 Essential (primary) hypertension | CPT/HCPCS: 80053; 80061; 83036 ==